=== PATIENT | male | born 1930 | race Two or more races ===

== ENCOUNTER → 2017-07-06 | Outpatient (CLI) | payer MEDICARE ==
[~2017-07-06] VITALS: Ht 160 cm; Wt 65.9 kg
[~2017-07-06] MED LIST: ACET-76 PO; ASPI-621 PO; ATOR20TA9 PO; CHOL200024 PO; DOCU100C33 PO; GABA300C10 PO; LEVO100T5 PO; PANT40TA3 PO; TAMS-11 PO; TRAM50TA2 PO
== END | disposition home or self-care (01) ==
LOC: STAR 09:54 → EDSTATUS 07-07 11:15
PROVIDERS: ATTEND Specialist
DX: Z01.818 Encounter for other preprocedural examination (principal); R94.31 Abnormal electrocardiogram [ECG] [EKG]; Z86.010 Personal history of colon polyps; Z88.8 Allergy status to other drugs, medicaments and biological substances
CPT/HCPCS: 93005